=== PATIENT | male | born 1955 | race Caucasian/White ===

== ENCOUNTER 2022-08-05 12:13 | Observation (INO) | payer MEDICARE, OTHER, SELFPAY ==
[2022-08-05] VITALS (15 sets, daily range): BP systolic 138–170; BP diastolic 71–98; PULSE 61–99; RESP 18–24; TEMP 36.4–36.7; O2SAT 96–99
--- NOTE | ~2022-08-05 | XR_ITS ---
EXAMINATION: XR chest 2V DATE: 08/05/2022 12:40 INDICATION: Chest pain. Shortness of breath. TECHNIQUE: Frontal and lateral views of the chest were obtained. COMPARISON: None. FINDINGS: The chest demonstrates clear lungs without pneumonia, pleural effusion, or pneumothorax. Th e heart size is normal. There is a total right shoulder arthroplasty. IMPRESSION: 1. No acute cardiopulmonary disease. Reviewed, dictated and finalized at location A. K OUT CLERK
--- NOTE | 2022-08-05 12:19 | ECG_ITS ---
Measurements Intervals [place] Rate: 72 P: 7 WI: 198 QRS: -22 QRSD: 102 T: 32 QT: 388 QTc: 426 Interpretive Statements SINUS RHYTHM DELAYED PRECORDIAL R/S TRANSITION BASELINE ARTIFACT- I, II, AVR, AVF BORDERLINE ECG NO PREVIOUS ECG AVAILABLE FOR COMPARISON Electronically Signed On 08-05-2022 13:29:40 SECURITY SYSTEMS TECHNICIAN by Kolton John D.O.
[2022-08-05 12:39] LABS: Basophils Absolute Auto 0.1 K/mm3 (0.0-0.1); Basophils Percent Auto 0.8 % (0.2-1.2); Eosinophils Absolute Auto 0.3 K/mm3 (0-0.3); Eosinophils Percent Auto 2.9 % (0-4.4); Hematocrit 43.9 % (42.0-52.0); Hemoglobin 14.5 g/dL (14.0-18.0); Immature Granulocyte Absolute 0.06 K/mm3 (0.00-0.031); Immature Granulocyte Percent A 0.6 % (0-0.5); Immature Platelet Fraction Pct 3.7 % (0.9-11.2); Lymphocytes Absolute Auto 2.53 K/mm3 (0.9-3.2); Lymphocytes Percent Auto 24.2 % (18.3-44.2); Mean Corpuscular Hemoglobin 32.2 pg (26-34); Mean Corpuscular Volume 97.3 fl (80-100); Mean Platelet Volume 9.7 fl (7.4-10.4); Monocytes Absolute Auto 0.9 K/mm3 (0.1-0.6); Monocytes Percent Auto 8.5 % (2.6-8.5); Neutrophils Absolute Auto 6.6 K/mm3 (1.3-6.7); Platelet Count Result 248 k/mm3 (150-375); Red Blood Count 4.51 M/mm3 (4.6-6.20); White Blood Count 10.5 K/mm3 (4.5-10.0)
[2022-08-05 12:55] LABS: Prothrombin Time 12.7 Seconds (11.1-14.7)
[2022-08-05 13:02] LABS: Partial Thromboplastin Time < 20.0 SECONDS (22.3-36.8)
[2022-08-05] MEDS: IPRATROPIUM BR 0.02% INH SOLN 0.5 MG/2.5 ML VIAL 1 MG INHALATION ×2 (13:27→14:59)
[2022-08-05] MEDS: ALBUTEROL SULFATE NEB 2.5 MG/3 ML INH 10 MG INHALATION ×2 (13:27→15:00)
[2022-08-05 13:38] LABS: Alanine Aminotransferase 23 U/L (6-50); Albumin Level 4.1 g/dL (3.5-5.1); Alkaline Phosphatase 94 U/L (38-126); Anion Gap 9 mmol/L (8-16); Aspartate Amino Transferase 20 U/L (17-59); Bilirubin,Total 0.4 mg/dL (0.2-1.3); Blood Urea Nitrogen 13 mg/dL (9-20); Calcium 8.8 mg/dL (8.4-10.2); Carbon Dioxide 25 mmol/L (22-30); Chloride 106 mmol/L (98-107); Estimated CRCL calculation 64 ml/min; Estimated Glomerular Filt Rate 55; Glucose 98 mg/dL (65-110); Lipase 57 U/L (23-300); Potassium 3.9 mmol/L (3.4-5.0); Sodium 140 mmol/L (137-145)
[2022-08-05 13:50] LABS: Troponin I < 0.012 ng/mL (0.000-0.034)
--- NOTE | 2022-08-05 14:28 | PC.NURSE ---
patients to nursing station stating that patients chest pain is getting worse. Dr Batista made aware. no new orders
[2022-08-05] MEDS: KETOROLAC 30 MG/ML VIAL (*BKC) IV PUSH (14:44)
[2022-08-05] MEDS: methylPREDNISolone SOD SUCC 125 MG VIAL IV PUSH (16:20)
[2022-08-05] MEDS: MORPHINE SULFATE (*CRX) 4 MG/ML INJ IV PUSH (16:20)
[2022-08-05 16:30] LABS: Troponin I < 0.012 ng/mL (0.000-0.034)
--- NOTE | 2022-08-05 16:51 | ED.CHESTPAIN ---
HPI - Chest Pain General Chief Complaint: Chest Pain Stated Complaint: chest pain - nitro helps Time Seen by Provider: 08/05/22 12:44 History of Present Illness HPI narrative: Patient is a 58-year-old male who presents ER with chest pain. Began after he woke up today around 10 AM. Is having some burning but then he developed some left-sided aches. No radiation. [place] slight relief with nitro by EMS. No history of [place]. Patient denies any nausea or diaphoresis. Cannot describe any additional aggravating or alleviating factors. Patient does have some mild shortness of breath Related Data Allergies Allergy/AdvReac Type Severity Reaction Status Date / Time iohexol Allergy Hives Verified 08/05/22 20:37 [From contrast - CT, X-RAY] Review of Systems Review of Systems: All systems reviewed & are unremarkable except as noted in HPI and below Constitutional: Constitutional: Denies chills, Denies fatigue and Denies fever(s) ENT: Denies nasal congestion and Denies sore throat Cardiovascular: Cardiovascular: Reports chest pain, Denies rapid heart rate and Denies radiating jaw, neck or arm pain Respiratory: Respiratory: Denies cough, Reports dyspnea and Denies wheezing Gastrointestinal: Gastrointestinal: Denies abdominal pain, Denies nausea and Denies vomiting Genitourinary: Genitourinary: Denies dysuria and Denies urinary frequency Neurologic: Denies headache(s), Denies focal weakness and Denies numbness PMFSH Past Medical History Medical History (Updated 08/08/22 @ 21:29 by Giorgio Batista MD) COPD (chronic obstructive pulmonary disease) Family History Family History (Updated 08/06/22 @ 07:05 by Dianelys Zarco RN) Mother Acute myocardial infarction Father Acute myocardial infarction Hypertension Sibling CAD (coronary artery disease) Malignant neoplasm of prostate Social History Social History Smoking status: Former smoker Alcohol intake: unknown Substance use: never Lack of Transportation: No Lack of Food: Never True Current Housing: I Have Housing Concerned About Future Housing: No Difficulty Paying Gas/Electric Bills: No Difficulty Paying for Meds: No Currently Unemployed: No Education: Trade/Vocational Certificate Difficulty w/ Childcare or Family Care: No Spiritual care concerns: No Exam Narrative: GENERAL: Well-appearing, well-nourished, and in no acute distress. HEAD: Normocephalic, atraumatic. ENT: Mucous membranes moist. CHEST: Coarse rales and wheezing bilaterally. No respiratory distress. HEART: Regular rate and rhythm. Normal peripheral pulses. ABDOMEN: Soft, nontender, nondistended. EXTREMITIES: Normal range of motion. No edema. SKIN: Warm, dry, no rash. NEURO: Alert and oriented x3. PSYCH: Normal mood and affect. Course Course Emergency Course: Patient with 2 hour-long nebulizer treatments. Still having left-sided chest pain despite Toradol. Will give morphine. Rales worsening. Suspect symptoms related to COPD exacerbation or sudden cardiac chest pain but will rule out cardiac as well. Vital Signs Vital signs: Vital Signs Temperature 98.1 F 08/05/22 12:13 Pulse Rate 73 08/05/22 12:13 Respiratory Rate 18 08/05/22 12:13 Blood Pressure 139/83 08/05/22 12:13 Pulse Oximetry 97 08/05/22 12:13 Oxygen Delivery Room Air 08/05/22 12:13 Temperature 96.9 F L 08/06/22 03:14 Pulse Rate 79 08/06/22 08:55 Respiratory Rate 21 H 08/06/22 08:38 Blood Pressure 118/72 08/06/22 03:14 Pulse Oximetry 97 08/06/22 03:14 Oxygen Delivery Room Air 08/06/22 08:00 MDM - Chest Pain Lab Data Result diagrams: 08/06/22 02:38 08/06/22 02:38 Labs: Lab Results 08/05/22 08/05/22 08/05/22 Range/Units 12:28 12:28 13:18 WBC 10.5 H (4.5-10.0) K/mm3 RBC 4.51 L (4.6-6.20) M/mm3 Hgb 14.5 (14.0-18.0) g/dL Hct 43.9
[2022-08-05 18:51] LABS: Influenza A QL RT-PCR Negative (Negative); Influenza B QL RT-PCR Negative (Negative); SARS-CoV-2 RNA PCR Negative
[2022-08-05 19:31] LABS: Troponin I < 0.012 ng/mL (0.000-0.034)
--- NOTE | 2022-08-05 20:23 | PM.IMHP ---
H&P: HPI History of Present Illness Date/Time: 08/05/22 20:23 Chief Complaint: 66 years old male with past medical history of COPD presented to the hospital with shortness of breath worsening gradually associated with wheezing worsening gradually patient also complained of cough multiple times a day patient also complained of sharp chest pain the left side of the chest no radiation sharp in nature worsened with deep breath intermittent ECG was no significant finding in the ER troponin patient had some relief of chest pain with nitro patient was found to have acute COPD exacerbation admitted for further evaluation and treatment of COPD exacerbation and chest pain Review of Systems Review of Systems: Twelve system review was done negative except above Meds Home Medications and Allergies Allergies Allergy/AdvReac Type Severity Reaction Status Date / Time iohexol Allergy Hives Verified 08/05/22 12:27 [From contrast - CT, X-RAY] Vital Signs Vital Signs - 24 hr 08/05/22 12:13 08/05/22 13:25 08/05/22 14:25 Temperature 98.1 F Pulse Rate 73 61 70 Respiratory Rate 18 20 19 Blood Pressure 139/83 Pulse Oximetry 97 Oxygen Delivery Room Air 08/05/22 14:45 08/05/22 15:00 08/05/22 16:11 Temperature Pulse Rate 68 69 99 Respiratory Rate 20 24 H 22 H Blood Pressure 141/75 H Pulse Oximetry 99 Oxygen Delivery 08/05/22 16:22 08/05/22 18:50 08/05/22 19:35 Temperature 97.5 F L 97.7 F Pulse Rate 92 87 87 Respiratory Rate 18 20 20 Blood Pressure 142/87 H 170/98 H 138/71 Pulse Oximetry 99 96 96 Oxygen Delivery Exam Narrative: GENERAL: Well appearing, well-nourished, non-toxic, in no acute distress. HEAD: Normocephalic, atraumatic. NECK: Supple. No adenopathy, no masses. RESPIRATORY: Bilateral wheezing crackles positive local tenderness CARDIOVASCULAR: Regular rate and rhythm without murmurs, rubs, or gallops. Peripheral pulses 2+ and equal bilaterally. ABDOMINAL: Soft, nontender, nondistended, no hepatosplenomegaly. Normoactive BS. MUSCULOSKELETAL: Moves all extremities. Strength/ROM intact without gross deformities or TTP. No edema. No calf tenderness. No chest wall tenderness palpation. SKIN: Warm, dry, normal color. No rashes. NEURO: A&O X3. Nonfocal alert oriented moves all extremities PSYCHIATRIC: Appropriate mood and affect. Normal interaction. H&P: Results Labs Labs: Short CBC 08/05/22 Range/Units 12:28 WBC 10.5 H (4.5-10.0) K/mm3 Hgb 14.5 (14.0-18.0) g/dL Hct 43.9 (42.0-52.0) % Plt Count 248 (150-375) k/mm3 BMP 08/05/22 13:18 Sodium 140 Potassium 3.9 Chloride 106 Carbon Dioxide 25 BUN 13 Creatinine 1.30 Glucose 98 Calcium 8.8 Cardiac Enzymes 08/05/22 08/05/22 08/05/22 Range/Units 13:18 16:00 19:05 Troponin I < 0.012 < 0.012 < 0.012 (0.000-0.034) ng/mL Liver Function 08/05/22 Range/Units 13:18 Total Bilirubin 0.4 (0.2-1.3) mg/dL AST 20 (17-59) U/L ALT 23 (6-50) U/L Alkaline Phosphatase 94 (38-126) U/L Albumin 4.1 (3.5-5.1) g/dL Assessment and Plan Assessment and plan (1) Chest pain: Code(s): R07.9 - Chest pain, unspecified Status: Acute Assessment and Plan: Most likely musculoskeletal versus GERD Continue tele monitor Rule out ACS Will get echo Give aspirin Coreg P.r.n. nitro Check lipid panel Check D-dimer if elevated will get CT scan of the chest (2) COPD exacerbation: Code(s): J44.1 - Chronic obstructive pulmonary disease with (acute) exacerbation Status: Acute Assessment and Plan: Nebulizer treatment IV steroid IV antibiotics
[2022-08-05] MEDS: HYDROcodone/acetaminophen (*CRX) 5-325 MG TABLET 1 TAB PO (20:33)
[2022-08-05] MEDS: ALBUTEROL SULFATE NEB 2.5 MG/3 ML INH 5 MG INHALATION (20:39)
[2022-08-05] MEDS: IPRATROPIUM BR 0.02% INH SOLN 0.5 MG/2.5 ML VIAL INHALATION (20:40)
[2022-08-05 21:58] LABS: Cholesterol 148 mg/dL (0-200); HDL Direct 45 mg/dL; Triglycerides 129 mg/dL (<150)
[2022-08-05] MEDS: FAMOTIDINE 20 MG TABLET PO (22:02)
[2022-08-05] MEDS: METOPROLOL TARTRATE 12.5 MG TABLET PO (22:03)
[2022-08-05] MEDS: guaiFENesin 12 HR 600 MG TABCR PO (22:03)
[2022-08-05] MEDS: methylPREDNISolone SOD SUCC 40 MG VIAL IV PUSH (22:06)
[2022-08-05 22:09] LABS: LDL Cholesterol Direct 82 mg/dL
[2022-08-05 22:16] LABS: D Dimer 0.46 ug/mL (<0.48)
[2022-08-06] VITALS (10 sets, daily range): BP systolic 118; BP diastolic 72; PULSE 72–82; RESP 20–22; TEMP 36.1; O2SAT 96–97
--- NOTE | 2022-08-06 | ECHO_ITS ---
Patient Info Name: Chris Guzman Age: 66 years : 1955 Gender: Male Ht: 73 in Wt: 248 lbs BSA: 2.44 m2 HR: 72 bpm BP: 118 / 72 mmHg Heart Rhythm: Sinus Rhythm Technical Quality: Fair Exam Date: 08/06/2022 10:41 AM Exam Location: [facility] Patient Status: Outpatient Admit Date: 08/05/2022 Staff Ordering Physician: José Luis Morales M.A., MD Tax Preparer: Kenzie Zamora RDCS Attending Provider: Arturo Frias MD Referring Physician: Nacho SAPP; Exam Type: CA echo dop color flow w con Study Info Indications R07.9 - Chest pain, unspecified Complete two-dimensional, color flow and Doppler transthoracic echocardiogram is performed with contrast to opacify the left ventricle and to improve the deliniation of the left ventricle endocardial borders. Contrast/Agitated Saline Contrast/Ag. Saline: Definity Amount: 3.00 ml Administered By: Kenzie Zamora RDCS Existing IV Access: Yes IV Access Condition: patent with no signs of infiltration Summary 1. Left ventricular systolic function is normal, estimated at 60-65%. 2. There is mildly increased left ventricular wall thickness. 3. The left ventricular diastolic function is grade I diastolic dysfunction. 4. Right ventricular systolic function is normal. 5. There is mild mitral valve regurgitation. 6. There is mild tricuspid valve regurgitation. Left Ventricle Left ventricular chamber dimension is normal. Left ventricular systolic function is normal, estimated at 60-65%. There is mildly increased left ventricular wall thickness. The left ventricular diastolic function is grade I diastolic dysfunction. Right Ventricle Right ventricular chamber dimension is normal. Right ventricular systolic function is normal. Left Atria Left atrial chamber dimension is normal. Right Atria Right atrial chamber dimension is normal. Atrial Septum Intact interatrial septum visualized by color flow imaging. Aortic Valve The aortic valve is not well visualized. There is no aortic valve stenosis. There is no aortic valve regurgitation. Pulmonic Valve The pulmonic valve is not well visualized. Mitral Valve The mitral valve has not well visualized. There is mild mitral valve regurgitation. Tricuspid Valve The tricuspid valve leaflets are not well visualized. There is mild tricuspid valve regurgitation. Pericardium/Pleural The pericardium appears epicardial fat pad. There is no pericardial effusion. Aorta The aortic root size at the sinus of Valsalva is normal. The prox ascending aorta size is dilated. Left Ventricular Outflow Tract Name Value Normal LVOT 2D LVOT Diameter 2.21 cm LVOT Doppler LVOT Peak Gradient 4 mmHg LVOT Mean Gradient 2 mmHg LVOT VTI 21.37 cm LVOT VTI/AV VTI Ratio 0.73 LVOT Stroke Volume 82.29 ml LVOT CO 5.92 l/min LVOT CI 2.43 L/
[2022-08-06 02:44] LABS: Basophils Percent Auto 0.2 % (0.2-1.2); Hematocrit 40.1 % (42.0-52.0); Hemoglobin 13.3 g/dL (14.0-18.0); Immature Granulocyte Absolute 0.06 K/mm3 (0.00-0.031); Immature Granulocyte Percent A 0.6 % (0-0.5); Lymphocytes Percent Auto 5.8 % (18.3-44.2); Mean Corpuscular HGB Conc 33.2 g/dl (32-36); Mean Corpuscular Hemoglobin 31.8 pg (26-34); Mean Corpuscular Volume 95.9 fl (80-100); Monocytes Absolute Auto 0.1 K/mm3 (0.1-0.6); Monocytes Percent Auto 0.8 % (2.6-8.5); Neutrophils Absolute Auto 9.7 K/mm3 (1.3-6.7); Neutrophils Percent Auto 92.6 % (45.5-73.1); Platelet Count Result 235 k/mm3 (150-375); Red Blood Count 4.18 M/mm3 (4.6-6.20); Red Cell Distribution Width 13.9 % (11.5-14.5); White Blood Count 10.4 K/mm3 (4.5-10.0)
[2022-08-06 03:05] LABS: Troponin I < 0.012 ng/mL (0.000-0.034)
[2022-08-06 03:07] LABS: Alanine Aminotransferase 38 U/L (6-50); Albumin Level 4.1 g/dL (3.5-5.1); Alkaline Phosphatase 81 U/L (38-126); Anion Gap 14 mmol/L (8-16); Aspartate Amino Transferase 27 U/L (17-59); Bilirubin,Total 0.3 mg/dL (0.2-1.3); Blood Urea Nitrogen 14 mg/dL (9-20); Calcium 8.9 mg/dL (8.4-10.2); Carbon Dioxide 20 mmol/L (22-30); Chloride 103 mmol/L (98-107); Estimated CRCL calculation 69 ml/min; Estimated Glomerular Filt Rate 60; Glucose 232 mg/dL (65-110); Potassium 4.3 mmol/L (3.4-5.0); Sodium 137 mmol/L (137-145)
[2022-08-06] MEDS: IPRATROPIUM BR 0.02% INH SOLN 0.5 MG/2.5 ML VIAL INHALATION ×2 (03:16→08:37)
[2022-08-06] MEDS: ALBUTEROL SULFATE NEB 2.5 MG/3 ML INH INHALATION ×2 (03:17→08:37)
[2022-08-06] MEDS: methylPREDNISolone SOD SUCC 40 MG VIAL IV PUSH (05:30)
--- NOTE | 2022-08-06 06:54 | ADMGEN ---
This patient, Chris Guzman, was admitted to [facility] Surg Room 316-01. Patient/family oriented to hospital policies and general routines including ID bracelet, bed and alarms, visiting hours, pain management, procedures, bathroom and other care routines, personal items, smoking policy, room service/diet, and visiting hours. Information on how to activate the Rapid Response Team has been discussed. Patient/Family are encouraged to report perceived risks to care and to ask questions if they do not understand what they are told or what they should do.
[2022-08-06] MEDS: METOPROLOL TARTRATE 12.5 MG TABLET PO (08:55)
[2022-08-06] MEDS: FAMOTIDINE 20 MG TABLET PO (08:56)
[2022-08-06] MEDS: ENOXAPARIN 40 MG/0.4 ML SYRINGE SUB-Q (08:56)
[2022-08-06] MEDS: guaiFENesin 12 HR 600 MG TABCR PO (08:58)
[2022-08-06] MEDS: PERFLUTREN LIPID MICROSPHERES 1.5 ML VIAL DILUTED TO 10 ML TOTAL VOLUME IV PUSH (11:15)
--- NOTE | 2022-08-06 11:29 | IVDEFINITY ---
Prior to administration of IV Definity the patient was educated on the risks and benefits of the imaging enhancing agent including potential adverse side effects. The patient verbalized understanding. Allergies were verified. No exclusion criteria were identified and at least one of the following inclusion criteria were met: 1) physician request, 2) patient technically difficult to image (per the [place] [employer] guidelines of two or more segments not discernable within the apical view), or 3) questionable left ventricular function. ?
--- NOTE | 2022-08-06 11:30 | PM.DS ---
DS: Admitting Diagnosis Discharge Date August 06, 2022 Admitting Diagnosis COPD exacerbation DS: Discharge Diagnosis Discharge Diagnosis (1) Chest pain: Code(s): R07.9 - Chest pain, unspecified Status: Acute Assessment and Plan: Most likely musculoskeletal versus GERD troponins negative. D-dimer negative as well no chest pain currently. (2) COPD exacerbation: Code(s): J44.1 - Chronic obstructive pulmonary disease with (acute) exacerbation Status: Acute DS: Summary Hospital Course Hospital Course: Patient is 58-year-old gentleman past history of smoking comes in with some wheezing and shortness of breath and some mild chest pain. Upon evaluation he was treated for COPD exacerbation he did exceptionally well with 1 night in the hospital. He is now on room air walking the halls and walking to his room and not having any shortness of breath. He has some minimal wheeze on examination but he says this is baseline and this is normal for him. He is not requiring any oxygen he has no chest pain today. Cardiac enzymes were negative. He will be discharged on antibiotics and steroids. Time Spent with Patient Time attestation: Total time spent providing and/or coordinating discharge services: Exam Narrative: GENERAL: Well appearing, well-nourished, non-toxic, in no acute distress. HEAD: Normocephalic, atraumatic. NECK: Supple. No adenopathy, no masses. RESPIRATORY: minimal wheeze. Improved CARDIOVASCULAR: Regular rate and rhythm without murmurs, rubs, or gallops. Peripheral pulses 2+ and equal bilaterally. ABDOMINAL: Soft, nontender, nondistended, no hepatosplenomegaly. Normoactive BS. MUSCULOSKELETAL: Moves all extremities. Strength/ROM intact without gross deformities or TTP. No edema. No calf tenderness. No chest wall tenderness palpation. SKIN: Warm, dry, normal color. No rashes. NEURO: A&O X3. Nonfocal alert oriented moves all extremities PSYCHIATRIC: Appropriate mood and affect. Normal interaction. DS: Data Data Completed and Pending Labs on day of discharge: Labs from last 24 hours 08/06/22 08/06/22 08/06/22 02:38 02:38 02:38 WBC 10.4 H RBC 4.18 L Hgb 13.3 L Hct 40.1 L MCV 95.9 MCH 31.8 MCHC 33.2 RDW 13.9 Plt Count 235 MPV 9.0 Immature Gran % (Auto) 0.6 H Neut % (Auto) 92.6 H Lymph % (Auto) 5.8 L [place] % (Auto) 0.8 L Eos % (Auto) 0.0 Baso % (Auto) 0.2 Lymph # (Auto) 0.60 L [place] # (Auto) 0.1 Eos # (Auto) 0.0 Baso # (Auto) 0.0 Abs Immat Gran (auto) 0.06 H Absolute Neuts (auto) 9.7 H Absolute Nucleated RBC 0.0 Nucleated RBC % 0.0 % Immature Plt Fraction PT INR APTT D-Dimer Sodium 137 Potassium 4.3 Chloride 103 Carbon Dioxide 20 L Anion Gap 14 BUN 14 Creatinine 1.20 Estim Creat Clear Calc 69 Estimated GFR 60 Glucose 232 H Calcium 8.9 Total Bilirubin 0.3 AST 27 ALT 38 Alkaline Phosphatase 81 Troponin I < 0.012 Total Protein 7.0 Albumin 4.1 Triglycerides Cholesterol LDL Cholesterol Direct HDL Direct Lipase Influenza A (RT-PCR) Influenza B (RT-PCR) SARS-CoV-2 RNA (RT-PCR) 08/05/22 08/05/22 08/05/22 21:44 21:44 19:05 WBC RBC Hgb Hct MCV MCH MCHC RDW Plt Count MPV Immature Gran % (Auto) Neut % (Auto) Lymph % (Auto) [place] % (Auto) Eos % (Auto) Baso % (Auto) Lymph # (Auto) [place] # (Auto) Eos # (Auto) Baso # (Auto) Abs Immat Gran (auto) Absolute Neuts (auto) Absolute Nucleated RBC Nucleated RBC % % Immature Plt Fraction PT INR APTT D-Dimer 0.46 Sodium Potassium Chloride Carbon Dioxide Anion Gap BUN Creatinine Estim Creat Clear Calc Estimated GFR Glucose Calcium Total Bilirubin AST ALT Alkaline Phosphatase Troponin I < 0.012
[2022-08-06 11:46] LABS: Glucose Point of Care 146 mg/dl (65-105)
== END 2022-08-06 12:48 | disposition home or self-care (01) ==
LOC: ANHED 17:28 → ANH3MEDSUR 19:20
PROVIDERS: Internal Medicine; Admitting Provider Internal Medicine; Emergency Provider Emergency Medicine; Visit Provider Chiropractor
DX: R07.9 Chest pain, unspecified (principal); J44.1 Chronic obstructive pulmonary disease with (acute) exacerbation; I34.0 Nonrheumatic mitral (valve) insufficiency; I36.1 Nonrheumatic tricuspid (valve) insufficiency; Z87.891 Personal history of nicotine dependence; Z20.822 Contact with and (suspected) exposure to COVID-19
CPT/HCPCS: 36415; 71046; 80053; 80061; 82948; 83690; 84484; 85025; 85055; 85380; 85610; 85730; 87636; 93005; 94640; 96365; 96372; 96375; 96376; 99285; A9270; C8929; G0378; J0696; J1650; J1885; J2270; J2920; J2930; Q9957